=== PATIENT | male | born 1965 | race Caucasian/White ===

== ENCOUNTER 2017-02-08 17:21 | Emergency (ER) | payer OTHER ==
[2017-02-08] MEDS ORDERED: FAMOTIDINE 20 MG TABLET PO ONE (17:41)
[2017-02-08] MEDS ORDERED: MAG HYDROX/AL HYDROX/SIMETH SUSP 30 ML UDCUP PO ONE ×2 (17:41→19:57)
--- NOTE | 2017-02-08 17:44 | ER Document Report ---
ED Medical Screen (RME) - General Chief Complaint: Epigastric Pain Stated Complaint: UPPER EPIGASTRIC PAIN Notes: Patient is experiencing lower right anterior chest pain as well as some right upper quadrant abdominal pain that started 2 nights ago after eating dinner. He went to bed and started having some fairly severe pains in that region. He awakened yesterday with continuing pain. It's worse when he takes a deep breath , moves, or eat food. Went out to [facility] for dinner last night and after eating, he experienced severe pain, again in the lower right anterior rib margin and into the right upper quadrant of the abdomen. Has not had any vomiting or diarrhea. No fevers. No shortness of breath or difficulty breathing or cough. No history of any abdominal surgeries. Only takes aspirin for medications. No history of heart disease, diabetes, high blood pressure, etc. Nonsmoker. Tender in the epigastrium and right upper quadrant, suggesting possible gallbladder disease. TRAVEL OUTSIDE OF THE [place] IN LAST 30 DAYS: No - Related Data Allergies/Adverse Reactions: No Known Allergies Allergy (Verified 09/17/15 15:26) Past Medical History Renal/ Medical History: Denies: Hx Peritoneal Dialysis - Immunizations Hx Diphtheria, Pertussis, Tetanus Vaccination: Yes Physical Exam - Vital signs Vitals: Temp Pulse Resp BP Pulse Ox 99.1 F 101 H 16 112/87 H 97 02/08/17 17:27 02/08/17 17:27 02/08/17 17:27 02/08/17 17:27 02/08/17 17:27 Course - Vital Signs Vital signs: Temp Pulse Resp BP Pulse Ox 99.1 F 101 H 16 112/87 H 97 02/08/17 17:27 02/08/17 17:27 02/08/17 17:27 02/08/17 17:27 02/08/17 17:27
--- NOTE | 2017-02-08 18:12 | ER Document Report ---
ED GI/ - General Chief Complaint: Epigastric Pain Stated Complaint: UPPER EPIGASTRIC PAIN Notes: The patient is a 51-year-old male who presents with 2 days of intermittent right upper quadrant abdominal pain that is worse when he eats. He has never had this in the past. He feels nauseous during these episodes, but it resolves after a few minutes. He denies chest pain, source of breath, fevers, vomiting, diarrhea, constipation, headache or back pain. TRAVEL OUTSIDE OF THE [place] IN LAST 30 DAYS: No - Related Data Allergies/Adverse Reactions: No Known Allergies Allergy (Verified 09/17/15 15:26) Past Medical History - General Information source: Patient - Social History Smoking Status: Unknown if Ever Smoked Family History: Reviewed & Not Pertinent Renal/ Medical History: Denies: Hx Peritoneal Dialysis - Immunizations Hx Diphtheria, Pertussis, Tetanus Vaccination: Yes Review of Systems - Review of Systems Notes: REVIEW OF SYSTEMS: CONSTITUTIONAL: -fevers, -chills EENT: -eye pain, -difficulty swallowing, -nasal congestion CARDIOVASCULAR:-chest pain, -syncope. RESPIRATORY: -cough, -SOB GASTROINTESTINAL: +abdominal pain, +nausea, -vomiting, -diarrhea GENITOURINARY: -dysuria, -hematuria MUSCULOSKELETAL: -back pain, -neck pain SKIN: -rash or skin lesions. HEMATOLOGIC: -easy bruising or bleeding. LYMPHATIC: -swollen, enlarged glands. NEUROLOGICAL: -altered mental status or loss of consciousness, -headache, - neurologic symptoms PSYCHIATRIC: -anxiety, -depression. ALL OTHER SYSTEMS REVIEWED AND NEGATIVE. Physical Exam - Vital signs Vitals: Temp Pulse Resp BP Pulse Ox 99.1 F 101 H 16 112/87 H 97 02/08/17 17:27 02/08/17 17:27 02/08/17 17:27 02/08/17 17:27 02/08/17 17:27 - Notes Notes: PHYSICAL EXAMINATION: GENERAL: Well-appearing, well-nourished and in no acute distress. HEAD: Atraumatic, normocephalic. EYES: Pupils equal round and reactive to light, extraocular movements intact, sclera anicteric, conjunctiva are normal. ENT: nares patent, oropharynx clear without exudates. Moist mucous membranes. NECK: Normal range of motion, supple without lymphadenopathy LUNGS: Breath sounds clear to auscultation bilaterally and equal. No wheezes rales or rhonchi. HEART: Regular rate and rhythm without murmurs ABDOMEN: Mild RUQ abdominal tenderness, soft, normoactive bowel sounds. No guarding, no rebound. No masses appreciated. EXTREMITIES: Normal range of motion, no pitting or edema. No cyanosis. NEUROLOGICAL: Cranial nerves grossly intact. Normal speech, normal gait. Normal sensory, motor, and reflex exams. PSYCH: Normal mood, normal affect. SKIN: Warm, Dry, normal turgor, no rashes or lesions noted. Course - Re-evaluation Re-evalutation: Patient's ultrasound does not show any evidence of cholecystitis or cholelithiasis. Labs are all unremarkable other than a slight leukocytosis. Patient may have duodenal pathology, such as an ulcer, that may be causing his symptoms. Told him that he must follow-up with his primary care physician and GI to recheck his symptoms. He appears well and is able to tolerate fluids. Will discharge home with strict return precautions. - Vital Signs Vital signs: Temp Pulse Resp BP Pulse Ox 100.9 F H 82 14 153/84 H 100 02/08/17 20:19 02/08/17 20:19 02/08/17 20:19 02/08/17 20:19 02/08/17 20:19 - Laboratory Result Diagrams: 02/08/17 18:58 02/08/17 18:58 Laboratory results interpreted by me: 02/08/17 02/08/17 18:58 18:58 WBC 11.6 H Absolute Neutrophils 8.4 H Glucose 111 H - Diagnostic Test Radiology reviewed: Image reviewed, Reports reviewed Radiology results interpreted by ma: RUQ US: No evidence of cholecystitis or cholelithiasis. - EKG Interpretation by Ma EKG shows normal: Sinus rhythm, [place], Intervals, QRS Complexes, ST-T Waves Rate: Normal Discharge - Discharge Clinical Impression: Abdominal pain Qualifiers: Abdominal location: right upper quadrant Qualified Code(s): R10.11 - Right upper quadrant pain Condition: Stable Disposition: HOME, SELF-CARE Additional Instructions: Begin omeprazole (Prilosec) twice a day and follow-up with her primary care physician. If you're constipated, begin MiraLAX. A high-fiber diet. If your pain worsens or have any other concerns, return immediately to the emergency room. ABDOMINAL PAIN: There are many causes of abdominal pain. Pain can mean a serious problem requiring surgery (such as appendicitis). It can also be an innocent problem that goes away on its own (such as a viral infection). Often, time must pass to determine the cause of pain. The physician does not feel that hospitalization is necessary, at present. Things may change within the next 24 hours. Call the doctor or come back for re- examination if any problems occur, such as: (1) Pain that becomes more severe, steady, or becomes concentrated in one specific area. Also, pain that is more severe with movement or coughing. (2) Vomiting that persists or becomes more frequent. (3) Blood in the vomitus, urine, or bowel movements. Blood in the stool may have a tarry or black appearance. (4) Shaking chills or fever greater than 100 degrees F. (5) The abdomen becomes more distended or swollen. (6) Bowel movements cease. (7) Failure to improve as expected. NORMAL EXAM AND WORKUP: At this time, your examination and workup show no significant abnormality. No significant abnormal physical findings are noted. All laboratory, EKG, and imaging (x-ray, CT scans, ultrasound) studies that were ordered show no significant abnormality. Although your examination and all studies that were ordered showed no significant abnormal finding, there are no examinations and no studies that are 100% accurate. There is always the possibility that some abnormality could exist and not be detected with physical examination or within the limits and capabilities of laboratory and other studies. You should return or follow up as you were instructed on your visit today for further evaluation if your symptoms do not resolve. FOLLOW-UP CARE: If you have been referred to a physician for follow-up care, call the physician s office for an appointment as you were instructed or within the next two days. If you experience worsening or a significant change in your symptoms, notify the physician immediately or return to the Emergency Department at any time for re-evaluation. Referrals: GIFTY MEJIA MD [ACTIVE STAFF] - Follow up as needed
[2017-02-08 18:26] LABS: APPEARANCE,URINE CLEAR; BILIRUBIN,URINE NEGATIVE (NEGATIVE); GLUCOSE, URINE NEGATIVE (NEGATIVE); KETONES,URINE NEGATIVE (NEGATIVE); LEUKOCYTE ESTERASE,URINE NEGATIVE (NEGATIVE); NITRITE,URINE NEGATIVE (NEGATIVE); PROTEIN,URINE NEGATIVE (NEGATIVE); URINE SPECIFIC GRAVITY 1.012; UROBILINOGEN,URINE NEGATIVE mg/dL (<2.0)
[2017-02-08 19:14] LABS: ABSOLUTE LYMPHOCYTES (AUTO) 1.7 10^3/uL (0.5-4.7); ABSOLUTE MONOCYTES (AUTO) 1.4 10^3/uL (0.1-1.4); ABSOLUTE NEUT (AUTO) 8.4 10^3/uL (1.7-8.2); BASOPHILS % (AUTO) 0.4 % (0-2); EOSINOPHILS % (AUTO) 0.2 % (0-6); HEMATOCRIT 41.1 % (37.9-51.0); HEMOGLOBIN 14.3 g/dL (13.5-17.0); HGB HCT DIFFERENCE 1.8; LYMPHOCYTES % (AUTO) 14.7 % (13-45); MEAN CORPUSCULAR HEMOGLOBIN 29.9 pg (27.0-33.4); MEAN CORPUSCULAR HGB CONC 34.8 g/dL (32.0-36.0); MEAN CORPUSCULAR VOLUME 86 fl (80-97); MONOCYTES % (AUTO) 11.7 % (3-13); RED BLOOD COUNT 4.78 10^6/uL (4.35-5.55); RED CELL DISTRIBUTION WIDTH 12.9 % (11.5-14.0); WHITE BLOOD COUNT 11.6 10^3/uL (4.0-10.5)
[2017-02-08 19:31] LABS: ALANINE AMINOTRANSFERASE 53 U/L (21-72); ALBUMIN 4.6 g/dL (3.5-5.0); ALKALINE PHOSPHATASE 40 U/L (38-126); ANION GAP 11 (5-19); ASPARTATE AMINO TRANSFERASE 31 U/L (17-59); BILIRUBIN,DIRECT 0.3 mg/dL (0.0-0.4); BILIRUBIN,TOTAL 0.6 mg/dL (0.2-1.3); BLOOD UREA NITROGEN 14 mg/dL (7-20); CALCIUM 9.9 mg/dL (8.4-10.2); CARBON DIOXIDE 28 mmol/L (22-30); CHLORIDE 104 mmol/L (98-107); CREATININE RESULT 0.81 mg/dL (0.52-1.25); GLUCOSE 111 mg/dL (75-110); LIPASE 37.8 U/L (23-300); POTASSIUM 4.2 mmol/L (3.6-5.0); SODIUM 142.8 mmol/L (137-145); TOTAL PROTEIN 7.5 g/dL (6.3-8.2)
[2017-02-08 19:43] LABS: CREATINE KINASE MB 0.61 ng/mL (<4.55)
[2017-02-08 19:44] LABS: TROPONIN I < 0.012 ng/mL
[2017-02-08] MEDS ORDERED: METOCLOPRAMIDE HCL ORAL SOLN 10 MG/10 ML UDCUP PO ONE (19:57)
[2017-02-08] MEDS ORDERED: LIDOCAINE 2% VISCOUS SOLN 20 ML UDCUP PO ONE (19:57)
[2017-02-08 20:27] VITALS: BP 153/84
--- NOTE | 2017-02-08 21:21 | EKG REPORT ---
SEVERITY:- BORDERLINE ECG - SINUS RHYTHM CONSIDER INFERIOR INFARCT : Confirmed by: Froy Spencer MD 08-Feb-2017 21:21:20
== END 2017-02-08 20:27 | disposition home or self-care (01) ==
LOC: ER 17:21
DX: R10.11 Right upper quadrant pain (principal); R10.13 Epigastric pain; R11.0 Nausea
CPT/HCPCS: 93005; 99284; 36415; 82553; 83690; 85025; 80053; 81001; 84484; 71020; 76705; 93010; J3490